=== PATIENT | male | born 1985 | race Hispanic/Latino ===

== ENCOUNTER 2021-11-04 15:53 | Inpatient (IN) | payer OTHER ==
[~2021-11-04] VITALS: Ht 177.8 cm; Wt 84.8 kg
[2021-11-04] MEDS ORDERED: MORPHINE 4 MG SYG ONE (16:39)
[2021-11-04] MEDS ORDERED: ONDANSETRON 4MG INJ ONE (16:39)
[2021-11-04] MEDS ORDERED: 0.9%NACL 1000ML 1,000 ML IV ONE ×2 (16:40→17:40)
[2021-11-04 16:43] LABS: BASOPHILS % (AUTO) 0.4 % (0.0-5.0); EOSINOPHILS % (AUTO) 2.5 % (0.0-8.0); HEMATOCRIT 50.8 % (42-54); LYMPHOCYTES % (AUTO) 15.7 % (21.0-51.0); MEAN CORPUSCULAR HEMOGLOBIN 28.6 pg (27.0-33.0); MEAN CORPUSCULAR VOLUME 81.5 fL (79-99); MONOCYTES % (AUTO) 6.3 % (3.0-13.0); NEUTROPHILS % (AUTO) 74.6 % (40.0-77.0); PLATELET COUNT (AUTO) 254 K/uL (130-400); RED BLOOD CELL COUNT(AUTO) 6.23 MIL/uL (4.50-6.20); RED CELL DISTRIBUTION WIDTH 12.1 % (11.0-15.5); WHITE BLOOD COUNT (AUTO) 10.3 K/uL (4.8-10.8)
[2021-11-04 16:51] LABS: CREATININE 0.9 mg/dL (0.5-1.5); POTASSIUM 4.2 mmol/L (3.5-5.1)
[2021-11-04 17:07] LABS: ALBUMIN 4.5 g/dL (3.5-5.0); BILIRUBIN,TOTAL 3.6 mg/dL (0.2-1.0)
[2021-11-04] MEDS ORDERED: MORPHINE 4 MG SYG IVP ONE (17:40)
[2021-11-04] MEDS ORDERED: ONDANSETRON 4MG INJ IVP ONE (17:40)
[2021-11-04] MEDS ORDERED: MORPHINE 4 MG SYG IV PRN (20:30)
[2021-11-04] MEDS ORDERED: 0.9%NACL 1000ML 1,000 ML IV SCH (20:30)
[2021-11-04] MEDS ORDERED: ONDANSETRON 4MG INJ IV PRN (20:30)
[2021-11-04] MEDS ORDERED: ACETAMINOPHEN 325 MG TAB PO PRN ×2 (20:30)
[2021-11-04] MEDS: FAMOTIDINE 20MG VIAL IV SCH (20:42)
[2021-11-04] MEDS: ZOSYN 3.375GM +NS 50ML IV SCH (20:42)
[2021-11-04 22:20] VITALS: BP 142/92
[2021-11-04] MEDS ORDERED: KETOROLAC 15MG/ML VIAL (15MG/ML) IV ONE (23:30)
[2021-11-04 23:51] LABS: APPEARANCE,URINE Clear (CLEAR); BILIRUBIN,URINE Moderate (NEGATIVE); GLUCOSE, URINE (UA) Negative (NEGATIVE); KETONES,URINE Trace mg/dL (NEGATIVE); LEUKOCYTE ESTERASE ,URINE Trace (NEGATIVE); NITRATE,URINE Negative (NEGATIVE); OCCULT BLOOD,URINE Negative (NEGATIVE); PROTEIN,URINE Negative (NEGATIVE)
[2021-11-04 23:55] LABS: COLOR,URINE AMBER (YELLOW)
[2021-11-05] VITALS (7 sets, daily range): BP systolic 115–140; BP diastolic 67–85
[2021-11-05 00:04] LABS: AMPHET/METH SCREEN,URINE POSITIVE (NEGATIVE); BARBITURATE SCREEN, URINE NEGATIVE (NEGATIVE); BENZODIAZEPINES SCREEN,URINE NEGATIVE (NEGATIVE); CANNABINOID SCREEN,URINE NEGATIVE (NEGATIVE); COCAINE SCREEN,URINE NEGATIVE (NEGATIVE); OPIATE SCREEN,URINE POSITIVE (NEGATIVE); PHENCYCLIDINE SCREEN,URINE NEGATIVE (NEGATIVE)
[2021-11-05 00:13] LABS: BACTERIA,URINE None Seen /HPF (None Seen); MUCUS,URINE None Seen LPF (None Seen); RBC,URINE None Seen /HPF (0-1); SQUAMOUS EPITHELIAL CELL,UR Rare /HPF (0-2); WBC,URINE None Seen /HPF (0-1)
[2021-11-05] MEDS: ZOSYN 3.375GM +NS 50ML IV SCH ×3 (04:00→21:58)
[2021-11-05 04:52] LABS: HEMATOCRIT 44.7 % (42-54); MEAN CORPUSCULAR HGB CONC 33.8 g/dL (32.0-36.0); MEAN CORPUSCULAR VOLUME 82.8 fL (79-99); RED BLOOD CELL COUNT(AUTO) 5.4 MIL/uL (4.50-6.20); RED CELL DISTRIBUTION WIDTH 12.2 % (11.0-15.5); WHITE BLOOD COUNT (AUTO) 8.8 K/uL (4.8-10.8)
[2021-11-05 05:05] LABS: CARBON DIOXIDE 27 mmol/L (21-32); CHLORIDE 106 mmol/L (101-111); CREATININE 0.8 mg/dL (0.5-1.5); GLOMERULAR FILTR. RATE CALC 118 mL/min (>60); GLUCOSE,RANDOM 92 mg/dL (70-105); POTASSIUM 3.4 mmol/L (3.5-5.1); SODIUM SERUM 140 mmol/L (136-145); UREA NITROGEN, BLOOD 12 mg/dL (7-18)
[2021-11-05 05:06] LABS: INR 1.03 (0.85-1.15); PROTHROMBIN TIME 11.2 SEC (9.6-11.6)
[2021-11-05 05:07] LABS: PARTIAL THROMBOPLASTIN TIME 27.1 SEC (26.3-35.5)
[2021-11-05 05:15] LABS: ALBUMIN 3.7 g/dL (3.5-5.0); ALCOHOL, BLOOD < 3 mg/dL (0-10); ASPARTATE AMINOTRANSFERASE 299 U/L (10-37); BILIRUBIN,TOTAL 1.3 mg/dL (0.2-1.0); TOTAL PROTEIN, SERUM 6.5 g/dL (6.0-8.3)
[2021-11-05 05:19] LABS: ALANINE AMINOTRANSFERASE 712 U/L (12-78)
[2021-11-05 05:32] LABS: LIPASE 3027 U/L (114-286)
[2021-11-05] MEDS: FAMOTIDINE 20MG VIAL IV SCH ×3 (08:52→21:58)
[2021-11-05] MEDS: LACTATED RINGERS 1000ML 1,000 ML IV SCH ×3 (08:53→21:58)
[2021-11-05 09:02] LABS: CHOLESTEROL 130 mg/dL (<200); HDL CHOLESTEROL 45 mg/dL (29-71); LDL DIRECT 74 mg/dL (0-99); TRIGLYCERIDES 61 mg/dL (30-200)
[2021-11-05] MEDS: KETOROLAC 15MG/ML VIAL (15MG/ML) IV PRN (10:54)
[2021-11-05] MEDS ORDERED: MORPHINE 4 MG SYG IV PRN (12:30)
[2021-11-05] MEDS ORDERED: [UNRECOGNIZED DRUG - CODE] PO (17:38)
[2021-11-05] MEDS ORDERED: ASPI-1026 PO (17:38)
[2021-11-05] MEDS ORDERED: CHOL2000 PO (17:38)
[2021-11-05] MEDS ORDERED: UBID1CAP56 PO (17:38)
[2021-11-05] MEDS ORDERED: SLOMG PO (17:38)
[2021-11-05] MEDS ORDERED: OMEP20CA12 PO (17:38)
[2021-11-05] MEDS ORDERED: ASCO-157 PO (17:38)
[2021-11-05] MEDS ORDERED: KCL 20 MEQ ERTAB PO ONE (18:30)
[2021-11-06 03:25] VITALS: BP 121/71
[2021-11-06 04:55] LABS: HEMATOCRIT 40.5 % (42-54); MEAN CORPUSCULAR HEMOGLOBIN 28.2 pg (27.0-33.0); MEAN CORPUSCULAR HGB CONC 33.6 g/dL (32.0-36.0); RED BLOOD CELL COUNT(AUTO) 4.82 MIL/uL (4.50-6.20); WHITE BLOOD COUNT (AUTO) 8.5 K/uL (4.8-10.8)
[2021-11-06] MEDS: ZOSYN 3.375GM +NS 50ML IV SCH ×3 (05:02→21:45)
[2021-11-06] MEDS: LACTATED RINGERS 1000ML 1,000 ML IV SCH ×3 (05:02→18:49)
[2021-11-06 05:06] LABS: CREATININE 0.9 mg/dL (0.5-1.5); POTASSIUM 3.6 mmol/L (3.5-5.1)
[2021-11-06 07:57] VITALS: BP 125/70
[2021-11-06] MEDS: FAMOTIDINE 20MG VIAL IV SCH ×2 (08:19→21:45)
[2021-11-06 10:26] LABS: ALBUMIN 3.3 g/dL (3.5-5.0); BILIRUBIN,TOTAL 0.6 mg/dL (0.2-1.0)
[2021-11-06 11:51] VITALS: BP 114/67
[2021-11-06 15:34] VITALS: BP 118/72
[2021-11-06 20:00] VITALS: BP 117/75
[2021-11-07] VITALS (27 sets, daily range): BP systolic 108–158; BP diastolic 66–90
[2021-11-07] MEDS: KETOROLAC 15MG/ML VIAL (15MG/ML) IV PRN (01:51)
[2021-11-07] MEDS: LACTATED RINGERS 1000ML 1,000 ML IV SCH ×4 (04:04→21:23)
[2021-11-07] MEDS: ZOSYN 3.375GM +NS 50ML IV SCH ×3 (04:04→19:57)
[2021-11-07 05:50] LABS: HEMATOCRIT 40.8 % (42-54); MEAN CORPUSCULAR HEMOGLOBIN 28.3 pg (27.0-33.0); MEAN CORPUSCULAR HGB CONC 33.8 g/dL (32.0-36.0); MEAN CORPUSCULAR VOLUME 83.6 fL (79-99); RED BLOOD CELL COUNT(AUTO) 4.88 MIL/uL (4.50-6.20); RED CELL DISTRIBUTION WIDTH 11.9 % (11.0-15.5); WHITE BLOOD COUNT (AUTO) 8.5 K/uL (4.8-10.8)
[2021-11-07 06:06] LABS: ALBUMIN 3.1 g/dL (3.5-5.0); BILIRUBIN,TOTAL 0.8 mg/dL (0.2-1.0); POTASSIUM 3.4 mmol/L (3.5-5.1); TOTAL PROTEIN, SERUM 6.1 g/dL (6.0-8.3)
[2021-11-07] MEDS: FAMOTIDINE 20MG VIAL IV SCH ×2 (09:11→19:57)
[2021-11-07] MEDS ORDERED: LIDOCAINE PF 100MG/5ML (2%) SYRINGE 5ML ONE ×2 (12:55→13:33)
[2021-11-07] MEDS ORDERED: SUCCINYLCHOLINE CHLORIDE 20 MG/ML 10 ML VIAL ONE (12:55)
[2021-11-07] MEDS ORDERED: ROCURONIUM 10MG/1ML SYR 10 MG/ML ML ONE (12:55)
[2021-11-07] MEDS ORDERED: PROPOFOL 10 MG/ML 20ML VIAL IV ONE (12:55)
[2021-11-07] MEDS ORDERED: FENTANYL CITRATE PF 50 MCG/1 ML 2ML VIAL ONE (12:56)
[2021-11-07] MEDS ORDERED: BUPIVACAINE/PF 0.5% 30ML VIAL ONE (13:25)
[2021-11-07] MEDS ORDERED: GLYCOPYRROLATE 1 MG/5 ML SYRINGE ONE (13:33)
[2021-11-07] MEDS ORDERED: NEOSTIGMINE 5MG/5ML SYR IV ONE (13:33)
[2021-11-07] MEDS ORDERED: KETOROLAC 30MG VIAL (30MG/ML) ONE (13:33)
[2021-11-07] MEDS ORDERED: ONDANSETRON 4MG INJ ONE (13:34)
[2021-11-07] MEDS ORDERED: MEPERIDINE-PF 25 MG/ML SYG ONE ×3 (13:34→14:13)
[2021-11-08] VITALS: BP 113/70
[2021-11-08] MEDS: ACETAMINOPHEN WITH CODEINE 1 TAB TAB PO PRN ×2 (03:42→16:52)
[2021-11-08] MEDS: LACTATED RINGERS 1000ML 1,000 ML IV SCH (03:44)
[2021-11-08 04:00] VITALS: BP 111/65
[2021-11-08] MEDS: ZOSYN 3.375GM +NS 50ML IV SCH ×2 (05:11→12:30)
[2021-11-08 05:17] LABS: BASOPHILS % (AUTO) 0.4 % (0.0-5.0); EOSINOPHILS % (AUTO) 4.6 % (0.0-8.0); HEMATOCRIT 38.5 % (42-54); LYMPHOCYTES % (AUTO) 27.3 % (21.0-51.0); MEAN CORPUSCULAR HEMOGLOBIN 28.4 pg (27.0-33.0); MEAN CORPUSCULAR VOLUME 83.5 fL (79-99); NEUTROPHILS % (AUTO) 59.2 % (40.0-77.0); PLATELET COUNT (AUTO) 219 K/uL (130-400); RED BLOOD CELL COUNT(AUTO) 4.61 MIL/uL (4.50-6.20); RED CELL DISTRIBUTION WIDTH 11.8 % (11.0-15.5); WHITE BLOOD COUNT (AUTO) 8.2 K/uL (4.8-10.8)
[2021-11-08 05:33] LABS: ALBUMIN 2.9 g/dL (3.5-5.0); BILIRUBIN,TOTAL 0.3 mg/dL (0.2-1.0); POTASSIUM 3.8 mmol/L (3.5-5.1); TOTAL PROTEIN, SERUM 5.7 g/dL (6.0-8.3)
[2021-11-08 07:53] VITALS: BP 118/67
[2021-11-08] MEDS: FAMOTIDINE 20MG VIAL IV SCH (08:41)
[2021-11-08 12:00] VITALS: BP 118/61
[2021-11-08 15:28] VITALS: BP 121/65
== END 2021-11-08 17:30 | disposition home or self-care (01) | DRG 417 ==
LOC: EDH 15:53 → EDHIP 15:54 → 3CH 21:47
PROVIDERS: ADMIT Hospitalist; ATTEND Hospitalist
PROC: 0FT44ZZ Resection of Gallbladder, Percutaneous Endoscopic Approach (ICD-10-PCS; principal; 2021-11-07 10:30)
DX: K81.0 Acute cholecystitis (principal); K85.10 Biliary acute pancreatitis without necrosis or infection; F19.10 Other psychoactive substance abuse, uncomplicated; K76.89 Other specified diseases of liver; K82.8 Other specified diseases of gallbladder; Z20.822 Contact with and (suspected) exposure to COVID-19; Z87.891 Personal history of nicotine dependence; Z89.022 Acquired absence of left finger(s); Z83.3 Family history of diabetes mellitus; Z82.49 Family history of ischemic heart disease and other diseases of the circulatory system
CPT/HCPCS: 36415; 74176; 74181; 76705; 80053; 80061; 80305; 81001; 83690; 84484; 85025; 85027; 85610; 85730; 87088; 87486; 87635; 87797; 93005; G0378; J0330; J1885; J2001; J2175; J2270; J2405; J2543; J2704; J2710; J3010; J3490; J7030; J7120